=== PATIENT | male | born 1945 | race Caucasian/White ===

== ENCOUNTER 2016-08-08 13:39 | Outpatient (CLI) | payer MEDICARE ==
[2016-08-08 14:31] LABS: Anion Gap 17 mmol/L (10-20); BUN (Urea Nitrogen) 21 mg/dL (8.4-25.7); Calc. Creatinine Clearance 0 mL/min (70-130); Calcium 9.1 mg/dL (7.8-10.44); Carbon Dioxide 25 mmol/L (23-31); Chloride 106 mmol/L (98-107); Estimated GFR-MDRD 40; Glucose 85 mg/dL (80-115); Potassium 4.7 mmol/L (3.5-5.1); Sodium 143 mmol/L (136-145)
== END 2016-08-08 13:40 | disposition home or self-care (01) ==
LOC: MADLAB 13:39
PROVIDERS: ATTEND Internal Medicine Nephrology
DX: N18.3 Chronic kidney disease, stage 3 (moderate) (principal)
CPT/HCPCS: 36415; 80048

== ENCOUNTER 2016-12-15 09:46 | Outpatient (CLI) | payer MEDICARE ==
[2016-12-15 10:59] LABS: Anion Gap 12 mmol/L (10-20); BUN (Urea Nitrogen) 24 mg/dL (8.4-25.7); Calc. Creatinine Clearance 0 mL/min (70-130); Calcium 9.4 mg/dL (7.8-10.44); Carbon Dioxide 26 mmol/L (23-31); Chloride 106 mmol/L (98-107); Estimated GFR-MDRD 38; Glucose 76 mg/dL (80-115); Potassium 4.3 mmol/L (3.5-5.1); Sodium 140 mmol/L (136-145)
== END 2016-12-15 09:47 ==
LOC: MADLABBHPM 09:46
PROVIDERS: ATTEND Family Medicine
DX: I12.9 Hypertensive chronic kidney disease with stage 1 through stage 4 chronic kidney disease, or unspecified chronic kidney disease (principal); N18.3 Chronic kidney disease, stage 3 (moderate)
CPT/HCPCS: 36415; 80048; 84443

== ENCOUNTER 2017-04-12 11:57 | Outpatient (CLI) | payer MEDICARE ==
--- NOTE | 2017-04-12 12:47 | RAD ---
TWO VIEWS CHEST: History: Dyspnea on exertion. FINDINGS: The lungs are well aerated. No evidence of active intrathoracic disease seen. No evidence of effusio ns, pneumonia, or pneumothorax seen. IMPRESSION: Normal PA and lateral chest. POS: [facility]
== END 2017-04-12 11:58 | disposition home or self-care (01) ==
LOC: MADRAD 11:57
PROVIDERS: ATTEND Family Medicine
DX: R06.09 Other forms of dyspnea (principal)
CPT/HCPCS: 71020; 93005; 93010

== ENCOUNTER 2018-03-09 20:59 | Emergency (ER) | payer MEDICARE ==
[~2018-03-09 20:59] MED LIST: Sodium Chloride 0.9% 1,000 ML BAG ONE
[2018-03-09 21:21] LABS: #Basophils 0.1 thou/uL (0.0-0.2); #Eosinphils 0.2 thou/uL (0.0-0.7); #Lymphocytes 2.7 thou/uL (1.20-3.40); #Monocytes 0.9 thou/uL (0.11-0.59); #Neutrophils 6.3 thou/uL (1.40-6.50); %Basophils 0.9 % (0.0-1.0); %Eosinophils 1.9 % (0.0-10.0); %Lymphocytes 26.1 % (21.0-51.0); %Monocytes 8.8 % (0.0-10.0); %Neutrophils 62.2 % (42.0-75.0); Hemoglobin 14.7 g/dL (14.0-18.0); Mean Corpuscular HGB CONC 33.5 g/dL (32.0-36.0); Mean Corpuscular Hemoglobin 29.2 pg (27.0-31.0); Mean Corpuscular Volume 87.2 fL (78.0-98.0); Mean Platelet Volume 5.8 fL (7.4-10.4); Platelet Count 217 thou/uL (130-400); RBC Distribution Width 12.8 % (11.5-14.5); Red Blood Cell (RBC) Count 5.01 mill/uL (4.70-6.10); White Blood Cell (WBC) Count 10.2 thou/uL (4.8-10.8)
[2018-03-09 21:29] LABS: PTT 28.1 SEC (22.9-36.1); Prothrombin Time 12.8 SEC (12.0-14.7)
--- NOTE | 2018-03-09 21:35 | RAD ---
RADIOGRAPH CHEST 1 VIEW: 03/09/18 HISTORY: 72-year-old male with altered mental status. FINDINGS: There is hyperinflation of the lungs, consistent with COPD. There is no evidence of air space densit y, pneumothorax, or pulmonary edema. The lateral costophrenic angles are sharp. IMPRESSION: 1) No acute pulmonary findings. 2) Emphysema. karol [] POS: [facility]
[2018-03-09 21:37] LABS: Anion Gap 21 mmol/L (10-20); BUN (Urea Nitrogen) 19 mg/dL (8.4-25.7); Calc. Creatinine Clearance 0 mL/min (70-130); Calcium 10.1 mg/dL (7.8-10.44); Carbon Dioxide 19 mmol/L (23-31); Chloride 109 mmol/L (98-107); Estimated GFR-MDRD 36; Glucose 102 mg/dL (83-110); Potassium 3.6 mmol/L (3.5-5.1); Sodium 145 mmol/L (136-145)
[2018-03-09 21:41] LABS: Troponin I Less than 0.010 ng/mL (< 0.028)
--- NOTE | 2018-03-09 22:07 | CT ---
CT BRAIN NONCONTRAST: 03/09/18 HISTORY: 72-year-old male with altered mental status. FINDINGS: There is no midline shift or any other mass effect. There is no evidence of acute intracranial hemor rhage, large cortical infarct, obstructive hydrocephalus, or extraaxial fluid collection. There is a tiny old lacunar infarction at the posterior aspect of the head of the left caudate nucleus. There i s an approximately 1.2 cm osteolytic lesion at the left parietal bone at the vertex of the skull. Jaci rby, there are at least two other osteolytic lesions in the left parietal bone at the vertex, each ap proximately 0.4 cm. There is no calvarial fracture. There is mucosal thickening at the left sphenoid air cell. IMPRESSION: 1. No acute intracranial findings. 2. 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 Possibilities inc lude osseous metastases versus multiple myeloma versus hemangiomas of bone. Recommend nuclear medici ne whole body bone scan. 3. Tiny old lacunar infarction in the left caudate nucleus. karol lloyd POS: [facility]
== END 2018-03-09 22:15 | disposition short-term general hospital (02) ==
LOC: MADERS 20:59
DX: I63.9 Cerebral infarction, unspecified (principal); E78.5 Hyperlipidemia, unspecified; J44.9 Chronic obstructive pulmonary disease, unspecified; I10 Essential (primary) hypertension; Z87.891 Personal history of nicotine dependence; Z79.899 Other long term (current) drug therapy; Z79.82 Long term (current) use of aspirin
CPT/HCPCS: 36416; 70450; 71045; 80048; 82553; 84484; 85025; 85610; 85730; 93005; 94760